=== PATIENT | male | born 1985 | race Caucasian/White ===

== ENCOUNTER → 2023-10-19 11:48 | Outpatient (REF) | payer OTHER, SELFPAY | LOC: HWRAD 11:48 | PROVIDERS: ATTENDING PHYSICIAN Family Medicine | DX: R51.9 Headache, unspecified (principal) | CPT/HCPCS: 70450 ==

== ENCOUNTER 2024-01-04 17:54 | Outpatient (RCR) | payer OTHER, SELFPAY | END 2024-01-04 23:59 | disposition home or self-care (01) | LOC: RPT 17:54 | PROVIDERS: ATTENDING PHYSICIAN Neurological Surgery; FAMILY PHYSICIAN Family Medicine | DX: M96.1 Postlaminectomy syndrome, not elsewhere classified (principal); Z98.890 Other specified postprocedural states; Z73.6 Limitation of activities due to disability | CPT/HCPCS: 97110; 97112; 97163; 97530 ==

== ENCOUNTER 2024-02-01 18:02 | Outpatient (RCR) | payer OTHER, SELFPAY | END 2024-02-01 23:59 | disposition home or self-care (01) | LOC: RPT 18:02 | PROVIDERS: ATTENDING PHYSICIAN Neurological Surgery; FAMILY PHYSICIAN Family Medicine | DX: Z47.89 Encounter for other orthopedic aftercare (principal); Z73.6 Limitation of activities due to disability; M54.50 Low back pain, unspecified; R20.0 Anesthesia of skin; R20.2 Paresthesia of skin; M62.81 Muscle weakness (generalized) | CPT/HCPCS: 97110; 97112; 97530 ==

== ENCOUNTER 2024-02-22 18:01 | Outpatient (RCR) | payer BC, SELFPAY | END 2024-02-22 23:59 | disposition home or self-care (01) | LOC: RPT 18:01 | PROVIDERS: ATTENDING PHYSICIAN Neurological Surgery; FAMILY PHYSICIAN Family Medicine | DX: M96.1 Postlaminectomy syndrome, not elsewhere classified (principal); Z98.890 Other specified postprocedural states; Z73.6 Limitation of activities due to disability | CPT/HCPCS: 97110; 97112; 97530 ==

== ENCOUNTER 2024-03-28 18:00 | Outpatient (RCR) | payer BC, SELFPAY | END 2024-03-31 15:35 | disposition home or self-care (01) | LOC: RPT 18:00 | PROVIDERS: ATTENDING PHYSICIAN Neurological Surgery; FAMILY PHYSICIAN Family Medicine | DX: Z47.89 Encounter for other orthopedic aftercare (principal); M54.50 Low back pain, unspecified; Z73.6 Limitation of activities due to disability; R20.0 Anesthesia of skin; R20.2 Paresthesia of skin; M62.81 Muscle weakness (generalized); R26.89 Other abnormalities of gait and mobility | CPT/HCPCS: 97110; 97112 ==

== ENCOUNTER → 2024-11-08 06:49 | Outpatient (REF) | payer BC, SELFPAY | LOC: HWRAD 06:49 | PROVIDERS: ATTENDING PHYSICIAN Family Medicine | DX: N28.1 Cyst of kidney, acquired (principal) | CPT/HCPCS: 76775 ==